=== PATIENT | male | born 1995 | race Caucasian/White ===

== ENCOUNTER 2023-12-19 14:34 | Emergency (ER) | payer OTHER ==
[2023-12-19 15:21] LABS: BILIRUBIN,URINE SMALL (NEGATIVE); GLUCOSE, URINE (UA) NEGATIVE (NEGATIVE); KETONES,URINE (UA) NEGATIVE (NEGATIVE); LEUKOCYTE ESTERASE, URINE NEGATIVE (NEGATIVE); NITRITE,URINE NEGATIVE (NEGATIVE); OCCULT BLOOD,URINE NEGATIVE (NEGATIVE); PROTEIN,URINE TRACE mg/dL (NEGATIVE); UROBILINOGEN,URINE 0.2 (NORMAL) E.U./dL (NORMAL)
[2023-12-19 15:22] LABS: CLARITY,URINE CLEAR (CLEAR)
[2023-12-19 15:42] LABS: BASOPHILS # (AUTO) 0.1 10^3/uL (0.0-0.1); BASOPHILS % (AUTO) 0.7 %; EOSINOPHILS # (AUTO) 0.2 10^3/uL (0.0-0.7); EOSINOPHILS % (AUTO) 1.9 %; HCT - HEMATOCRIT 36.3 % (42.0-52.0); LYMPHOCYTES # (AUTO) 1.6 10^3/uL (1.5-3.5); LYMPHOCYTES % (AUTO) 14.4 %; MEAN CORPUSCULAR HEMOGLOBIN 17.9 pg (27.0-31.0); MEAN CORPUSCULAR HGB CONC 27.5 g/dL (32.0-36.0); MEAN CORPUSCULAR VOLUME 65.1 fL (80.0-94.0); MEAN PLATELET VOLUME 8.2 fL (7.4-11.4); MONOCYTES # (AUTO) 1.2 10^3/uL (0.0-1.0); NEUTROPHILS # (AUTO) 7.7 10^3/uL (1.5-6.6); NEUTROPHILS % (AUTO) 71.8 %; PLT - PLATELET COUNT 660 10^3/uL (130-450); RED BLOOD COUNT 5.58 10^6/uL (4.70-6.10); RED CELL DISTRIBUTION WIDTH 21.2 % (12.0-15.0); WHITE BLOOD COUNT 10.8 x10^3/uL (4.8-10.8)
[2023-12-19 15:45] LABS: SLIDE REVIEW? Indicated
[2023-12-19 15:56] LABS: ALBUMIN 3.4 g/dL (3.2-5.5); ALBUMIN/GLOBULIN RATIO 1.1 (1.0-2.2); BILIRUBIN,TOTAL 0.3 mg/dL (0.2-1.0); CALCIUM 9.1 mg/dL (8.5-10.3); CREATININE 0.9 mg/dL (0.6-1.3); TOTAL PROTEIN 6.4 g/dL (6.4-8.9)
[2023-12-19 16:10] LABS: PLATELET ESTIMATE, MANUAL INCREASED (>450,000) (NORMAL); PLATELET MORPHOLOGY NORMAL APPEARANCE (NORMAL)
[2023-12-19 16:11] LABS: WBC MORPHOLOGY (MULTIPLE) NORMAL APPEARANCE (NORMAL)
--- NOTE | 2023-12-19 17:28 | ED Physician Documentation ---
PD HPI ABD PAIN - Stated complaint Stated Complaint: STOMACH PX,GI,NAUSEA,COLLAZO - Chief complaint Chief Complaint: Abd Pain - Additional information Additional information: 28-year-old male presents emergency department for abdominal pain. Patient says that he has been having on and off bright red per rectum for the last 2 to 3 years now he said that he attributed it to heavy lifting he has never seen a provider for this. Today he started having bright javed blood per rectum he said he is also been having very inconsistent bowel movements and feels like anytime he eats he immediately has diarrhea. He has pain to his left lower quadrant he is now feeling dizziness with nausea.He is unsure if he has a history of hemorrhoids PD PAST MEDICAL HISTORY - Past Medical History Past Medical History: Yes Cardiovascular: None Respiratory: None Neuro: None Endocrine/Autoimmune: None GI: None : None HEENT: None Psych: None Musculoskeletal: None Derm: None - Past Surgical History Past Surgical History: No - Present Medications Home Medications: Ambulatory Orders Medication Instructions Recorded Confirmed Amox/Clav 875/125 [Augmentin] 1 each PO Q12H #14 tablet 12/19/23 Budesonide [Entocort EC] 9 mg PO DAILY #14 12/19/23 - Allergies Allergies/Adverse Reactions: Allergies Allergy/AdvReac Type Severity Reaction Status Date / Time No Known Drug Allergies Allergy Verified 12/19/23 15:01 - Social History Does the pt smoke?: No Smoking Status: Never smoker Does the pt drink ETOH?: Yes Does the pt have substance abuse?: No - Immunizations Immunizations are current?: Yes - POLST Patient has POLST: No PD ED PE NORMAL - Vitals Vital signs reviewed: Yes - General General: Alert and oriented X 3, No acute distress, Well developed/nourished - Cardiac Cardiac: RRR, No murmur, No gallop, Strong equal pulses - Respiratory Respiratory: No respiratory distress, Clear bilaterally - Abdomen Abdomen: Normal bowel sounds, Soft, No organomegaly, Other (Left lower quadrant tenderness) - Rectal Rectal: Other (pts at bedside, normal rectal tone, no hemrrhoids, no oozing or beeding noted) - Back Back: No CVA TTP - Derm Derm: Normal color, Warm and dry, No rash - Psych Psych: Normal mood, Normal affect Results - Vitals Vitals: Vital Signs - 24 hr 12/19/23 12/19/23 12/19/23 15:01 18:19 20:14 Temperature 37.6 C 36.8 C Heart Rate 110 H 92 89 Respiratory 18 16 18 Rate Blood Pressure 137/82 H 130/64 122/62 O2 Saturation 99 98 100 Oxygen O2 Source Room air - Labs Labs: Laboratory Tests 12/19/23 12/19/23 12/19/23 15:16 15:36 15:36 WBC 10.8 RBC 5.58 Hgb 10.0 L Hct 36.3 L MCV 65.1 L MCH 17.9 L MCHC 27.5 L RDW 21.2 H Plt Count 660 H MPV 8.2 Neut # (Auto) 7.7 H Lymph # (Auto) 1.6 [place] # (Auto) 1.2 H Eos # (Auto) 0.2 Baso # (Auto) 0.1 Absolute Nucleated RBC 0.00 Nucleated RBC % 0.0 Manual Slide Review Indicated WBC Morphology NORMAL APPEARANCE Platelet Estimate INCREASED (>450,000) Platelet Morphology NORMAL APPEARANCE RBC Morph Micro Appear 1+ POLYCHROMASIA Sodium 134 L Potassium 4.0 Chloride 101 Carbon Dioxide 29 Anion Gap 4.0 L BUN 12 Creatinine 0.9 Estimated GFR (MDRD) 101 Glucose 107 H Calcium 9.1 Total Bilirubin 0.3 AST 12 ALT 18 Alkaline Phosphatase 43 Total Protein 6.4 Albumin 3.4 Globulin 3.0 Albumin/Globulin Ratio 1.1 Lipase 15 Urine Color YELLOW Urine Clarity CLEAR Urine pH 7.0 Ur Specific [place] 1.020 Urine Protein TRACE Urine Glucose (UA) NEGATIVE Urine Ketones NEGATIVE Urine Occult Blood NEGATIVE Urine Nitrite NEGATIVE Urine Bilirubin SMALL H Urine Urobilinogen 0.2 (NORMAL) Ur Leukocyte Esterase NEGATIVE Ur Microscopic Review NOT INDICATED Urine Culture Comments NOT INDICATED PD Medical Decision Making - ED course ED course: 28-year-old male presents to the emergency department for left lower quadrant pain as well as bright red per rectum. Hemoglobin is stable at 10.0 hematocrit 36.3, MCV 65.1, MCH 17.9, platelet count elevated at 660 elevated neutrophils at 7.7 monocytes elevated at 1.2. Sodium is 134, glucose 107 there is small amount of bilirubin in his urine but aside from that his urinalysis is unremarkable. Rectal exam was complete by myself there is no internal or external hemorrhoids no bleeding noted normal sphincter tone. CT abdomen pelvis was complete without contrast results are still pending he also received 1 L of IV fluids. Report was given to Dr. Rossi who will further manage the patient's care and will give report to the patient once CT results have been complete. Departure - Departure Disposition: 01 Home, Self Care Clinical Impression: Colitis, Hematochezia Condition: Good Instructions: ED Colitis Ulcerative Prescriptions: Amox/Clav 875/125 [Augmentin] 1 each PO Q12H #14 tablet Budesonide [Entocort EC] 9 mg PO DAILY #14 Comments: You are seen tonight for worse than you have had in the past rectal bleeding. You were noted to be mildly anemic with a hemoglobin of 10 and a hematocrit of 36. He also had a high platelet count at 660 which is usually a sign of chronic inflammation. Chemistry panel was relatively unremarkable as was your urine. CT scan showing colitis. 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 In the meantime I am starting you on an antibiotic and a steroid which should help with the symptoms. Return if worse.
[2023-12-19] MEDS ORDERED: IOVERSOL 320 100 ML VIAL IVP ONE (17:38)
[2023-12-19] MEDS: IOVERSOL 320 100 ML VIAL IVP ONE (18:55)
--- NOTE | 2023-12-19 19:55 | CT Report ---
PROCEDURE: Abdomen/Pelvis W INDICATIONS: LLQ pain CONTRAST: Optiray 320- 100ml TECHNIQUE: After the administration of intravenous contrast, a CT scan of the abdomen and pelvis was performed. Images were recorded and evaluated at appropriate window settings. Reformats: coronal and sagittal. F or radiation dose reduction, the following was used: automated exposure control, adjustment of mA and /or kV according to patient size. COMPARISON: None. FINDINGS: Image quality: Diagnostic. Lower chest: Unremarkable. Liver: No solid mass. Gallbladder and biliary tree: No radiopaque stones or wall thickening. No biliary dilation. Spleen: No splenomegaly. Pancreas: No pancreatic ductal dilation. Adrenals: No adrenal nodule. Kidneys and ureters: No hydronephrosis. No renal cystic lesion which requires follow up. No solid mas s. Stomach, bowel and peritoneum: Liquid stool contents in the rectum. There is mural enhancement most p ronounced at the rectum and sigmoid colon. Normal appendix. No small bowel obstruction. Trace free fl uid in the left pelvis. No pneumoperitoneum. Prominent perigastric vasculature. Stomach is not disten ded. Lymph nodes: No central or retroperitoneal adenopathy. Vessels: No infrarenal aortic aneurysm. PELVIS Reproductive organs: Unremarkable. Bladder: No stone. Pelvic lymph nodes: No pelvic adenopathy by size criteria. Bones: No aggressive osseous abnormality. Other: No significant ventral or inguinal hernia. IMPRESSION: 1. Minimal enhancement most pronounced at the rectum and sigmoid colon. Liquid stool contents. Trace free fluid in the pelvis. These findings suggest a distal colitis/proctitis. 2. No small bowel obstruction. Normal appendix. Reviewed by: Ravi Diana MD on 12/19/2023 7:54 PM [facility] Approved by: Ravi Diana MD on 12/19/2023 7:54 PM PST Station ID: [id number]
[2023-12-19] MEDS: SODIUM CHLORIDE 0.9% 1,000 ML IV ONE (19:57)
--- NOTE | 2023-12-19 20:04 | ED Physician Documentation ---
ED Addendum - Addendum Addendum: 12/19/23 20:05 Signout from nurse practitioner at approximately 730 shift change. Briefly per her history, subacute to chronic GI bleeding worse today with bright red blood per rectum. Noted to be a modestly anemic with hemoglobin of 10 and elevated platelet count consistent with chronic inflammatory process. Chemistries and urine unremarkable. CT showing colitis. Discussed with him it is probably something like ulcerative colitis and will need follow-up colonoscopy and he understands. Will start budesonide and Augmentin in the interim. Discharged home Condition: Stable Diagnosis: 1. Lower GI bleed 2. Colitis Prescriptions: Augmentin 875/125 1 p.o. twice daily #14 Budesonide 9 mg p.o. daily #14
[2023-12-19 20:16] VITALS: BP 122/62; O2SAT 100
[2023-12-19] MEDS: AMOX/CLAV 875 MG/125 MG TABLET PO STA (20:28)
[2023-12-19] MEDS: BUDESONIDE 3 MG CAPSULE PO STA (20:54)
== END 2023-12-19 20:30 | disposition home or self-care (01) ==
LOC: ED 14:34
DX: K92.1 Melena (principal); K52.9 Noninfective gastroenteritis and colitis, unspecified; D64.9 Anemia, unspecified
CPT/HCPCS: 36415; 74177; 80053; 81003; 83690; 85025; 99283; 99284; A9270; Q9967; 81001; 87086

== ENCOUNTER 2023-12-20 15:15 | Emergency (ER) | payer OTHER ==
[2023-12-20 15:53] LABS: BASOPHILS % (AUTO) 1.2 %; EOSINOPHILS % (AUTO) 2.8 %; HCT - HEMATOCRIT 33.8 % (42.0-52.0); HGB - HEMOGLOBIN 9.5 g/dL (14.0-18.0); LYMPHOCYTES % (AUTO) 15.3 %; MEAN CORPUSCULAR HEMOGLOBIN 18.1 pg (27.0-31.0); MEAN CORPUSCULAR HGB CONC 28.1 g/dL (32.0-36.0); MEAN CORPUSCULAR VOLUME 64.4 fL (80.0-94.0); MEAN PLATELET VOLUME 8.6 fL (7.4-11.4); MONOCYTES % (AUTO) 17.4 %; NEUTROPHILS % (AUTO) 63.1 %; PLT - PLATELET COUNT 554 10^3/uL (130-450); RED BLOOD COUNT 5.25 10^6/uL (4.70-6.10); RED CELL DISTRIBUTION WIDTH 21.1 % (12.0-15.0); WHITE BLOOD COUNT 8.9 x10^3/uL (4.8-10.8)
[2023-12-20 15:54] LABS: ABNORMAL LYMPHS % (MANUAL) 0 %
[2023-12-20 16:04] LABS: ALBUMIN 3.2 g/dL (3.2-5.5); ALBUMIN/GLOBULIN RATIO 1.1 (1.0-2.2); BILIRUBIN,TOTAL 0.3 mg/dL (0.2-1.0); CALCIUM 8.5 mg/dL (8.5-10.3); CREATININE 0.8 mg/dL (0.6-1.3); POTASSIUM 3.7 mmol/L (3.5-4.5); TOTAL PROTEIN 6.1 g/dL (6.4-8.9)
[2023-12-20] MEDS: ONDANSETRON 4 MG/2 ML VIAL IVP STA (16:28)
[2023-12-20] MEDS: HYDROmorphone 1 MG/ML CARPUJECT IVP STA (16:31)
[2023-12-20] MEDS: DEXAMETHASONE 10 MG/ML VIAL IVP STA (16:34)
[2023-12-20 16:38] LABS: BAND NEUTROPHILS % (MANUAL) 15 %; BASOPHILS # (MANUAL) 0.2 10^3/uL (0-0.1); BASOPHILS % (MANUAL) 2 %; EOSINOPHILS # (MANUAL) 0.5 10^3/uL (0-0.7); LYMPHOCYTES % (MANUAL) 23 %; MONOCYTES # (MANUAL) 1.3 10^3/uL (0.0-1.0); NEUTROPHILS # (MANUAL) 4.8 10^3/uL (1.5-6.6)
[2023-12-20 16:42] LABS: PLATELET ESTIMATE, MANUAL INCREASED (>450,000) (NORMAL); PLATELET MORPHOLOGY NORMAL APPEARANCE (NORMAL); WBC MORPHOLOGY (MULTIPLE) 1+ SMUDGE CELLS (NORMAL)
[2023-12-20 16:43] LABS: DIFFERENTIAL COMMENT MANUAL DIFFERENTIAL
--- NOTE | 2023-12-20 17:06 | ED Physician Documentation ---
History of Present Illness - Stated complaint Stated Complaint: FEVER,HIGH BP,ABD PX - Chief complaint Chief Complaint: Abd Pain - Additonal information Additional information: Patient 28-year-old male presenting the emergency department with abdominal pain and blood per rectum. Seen here yesterday and diagnosed with colitis. Reports tried to go to his primary care doctor's office today and they "refused to see me". Returns because of persistent pain. Denies Nausea, vomiting Review of Systems Constitutional: reports: Fever Eyes: denies: Loss of vision Ears: denies: Loss of hearing Nose: denies: Rhinorrhea / runny nose Throat: denies: Dental pain / toothache Cardiac: denies: Chest pain / pressure Respiratory: denies: Dyspnea GI: reports: Abdominal Pain, Diarrhea, Bloody / black stool. denies: Nausea, Vomiting PD PAST MEDICAL HISTORY - Past Medical History Past Medical History: No Cardiovascular: None Respiratory: None Neuro: None Endocrine/Autoimmune: None GI: None : None HEENT: None Psych: None Musculoskeletal: None Derm: None - Past Surgical History Past Surgical History: No - Present Medications Home Medications: Ambulatory Orders Medication Instructions Recorded Confirmed Amox/Clav 875/125 [Augmentin] 1 each PO Q12H #14 tablet 12/19/23 12/20/23 Budesonide [Entocort EC] 9 mg PO DAILY #14 12/19/23 12/20/23 HYDROcod/ACETAM 5/325 [[place] 5/325] 1 - 2 ea PO Q6H PRN #14 tablet 12/20/23 Ondansetron Odt [Zofran] 4 mg TL Q6H PRN #10 tablet 12/20/23 - Allergies Allergies/Adverse Reactions: Allergies Allergy/AdvReac Type Severity Reaction Status Date / Time No Known Drug Allergies Allergy Verified 12/20/23 15:30 - Social History Does the pt smoke?: No Smoking Status: Never smoker Does the pt drink ETOH?: Yes Does the pt have substance abuse?: No - Immunizations Immunizations are current?: Yes - POLST Patient has POLST: No PD ED PE NORMAL - General General: Alert and oriented X 3 - HEENT HEENT: Atraumatic - Neck Neck: Supple, no meningeal sign - Cardiac Cardiac: RRR - Respiratory Respiratory: No respiratory distress - Abdomen Abdomen: Normal bowel sounds, Other (. Positive left lower quadrant tenderness) Results - Vitals Vitals: Vital Signs - 24 hr 12/20/23 12/20/23 15:18 16:13 Temperature 36.9 C Heart Rate 109 H 103 H Respiratory 17 14 Rate Blood Pressure 130/69 137/81 H O2 Saturation 100 96 Oxygen O2 Source Room air - Labs Labs: Laboratory Tests 12/20/23 12/20/23 12/20/23 15:42 15:42 15:42 WBC 8.9 RBC 5.25 Hgb 9.5 L Hct 33.8 L MCV 64.4 L MCH 18.1 L MCHC 28.1 L RDW 21.1 H Plt Count 554 H MPV 8.6 Neut # (Auto) Not Reportable Lymph # (Auto) Not Reportable [place] # (Auto) Not Reportable Eos # (Auto) Not Reportable Baso # (Auto) Not Reportable Absolute Nucleated RBC Not Reportable Total Counted 100 Band Neuts % (Manual) 15 H Abnorm Lymph % (Manual) 0 Nucleated RBC % Not Reportable Neutrophils # (Manual) 4.8 Lymphocytes # (Manual) 2.0 Monocytes # (Manual) 1.3 H Eosinophils # (Manual) 0.5 Basophils # (Manual) 0.2 H Differential Comment MANUAL DIFFERENTIAL WBC Morphology 1+ SMUDGE CELLS Platelet Estimate INCREASED (>450,000) Platelet Morphology NORMAL APPEARANCE RBC Morph Micro Appear 1+ TARGET CELLS Sodium 136 Potassium 3.7 Chloride 102 Carbon Dioxide 27 Anion Gap 7.0 BUN 9 Creatinine 0.8 Estimated GFR (MDRD) 116 Glucose 97 Lactic Acid 0.8 Calcium 8.5 Total Bilirubin 0.3 AST 9 L ALT 16 Alkaline Phosphatase 38 L Total Protein 6.1 L Albumin 3.2 Globulin 2.9 Albumin/Globulin Ratio 1.1 Lipase 13 PD Medical Decision Making - ED course Complexity details: reviewed old records, reviewed results, re-evaluated patient, d/w patient ED course: Patient 28-year-old male returning to the emergency department approximately 24 hours after diagnosis colitis with strong suspicion for an inflammatory bowel disease. Afebrile, hematin stable on arrival to the emergency department. Patient did have a very low level tachycardia with pulse 108 on arrival however this resolved while at rest. Labs obtained were all generally reassuring. No SIRS criteria and noted in patient's hemoglobin while slightly lower than yesterday i s not dramatically or significantly so. He was given dose hydromorphone, IV Decadron, Zofran with significant improvement in his symptoms. He was previously prescribed Augmentin and course steroid to take at home. Will provide medication for pain, nausea and continue to encourage follow-up with primary care for likely referral to gastroenterology. Clear return precautions given prior to discharge. Departure - Departure Disposition: Home, Self Care Clinical Impression: Colitis Prescriptions: HYDROcod/ACETAM 5/325 [[place] 5/325] 1 - 2 ea PO Q6H PRN #14 tablet PRN Reason: Pain Ondansetron Odt [Zofran] 4 mg TL Q6H PRN #10 tablet PRN Reason: Nausea / Vomiting Comments: Thank you for allowing us to care for you today [facility]. I written prescriptions for medication for pain and nausea. Please take these in conjunction with the medications you are prescribed yesterday. Please continue to work towards follow-up with your primary care doctor as you will likely need referral to a authorization rep. If it anytime you have new or worsening symptoms please not hesitate to return.
[2023-12-20 17:28] VITALS: BP 127/81; O2SAT 100
== END 2023-12-20 17:20 | disposition home or self-care (01) ==
LOC: ED 15:15
DX: K52.9 Noninfective gastroenteritis and colitis, unspecified (principal)
CPT/HCPCS: 36415; 80053; 83605; 83690; 85025; 96374; 96375; 99283; 99284; J1170

== ENCOUNTER 2024-02-05 08:00 | Outpatient (CLI) | payer OTHER | END 2024-02-05 23:59 | disposition home or self-care (01) | LOC: PC 08:00 | PROVIDERS: ATTEND Nurse Practitioner Adult Health | DX: Z51.5 Encounter for palliative care (principal); K51.90 Ulcerative colitis, unspecified, without complications; F41.9 Anxiety disorder, unspecified; R63.4 Abnormal weight loss; G47.00 Insomnia, unspecified; Z71.89 Other specified counseling | CPT/HCPCS: 99205 ==

== ENCOUNTER 2024-02-16 14:00 | Outpatient (CLI) | payer OTHER ==
--- NOTE | 2024-02-16 16:15 | XRAY Report ---
PROCEDURE: Chest 2V INDICATIONS: ACUTE COUGH TECHNIQUE: 2 views of the chest were acquired. COMPARISON: None. FINDINGS: Surgical changes and devices: None. Lungs and pleura: No pleural effusions or pneumothorax. Lungs are clear. Mediastinum: Mediastinal contours appear normal. Heart size is normal. Bones and chest wall: No suspicious bony lesions. Overlying soft tissues appear unremarkable. IMPRESSION: No acute cardiopulmonary process. Reviewed by: Socrates Ramirez MD on 02/16/2024 4:14 PM PDT Approved by: Socrates Ramirez MD on 02/16/2024 4:14 PM PDT Station ID: [id number]
== END 2024-02-16 14:15 | disposition home or self-care (01) ==
LOC: DI.N 14:00
PROVIDERS: ATTEND Physician Assistant Medical
DX: R05.1 Acute cough (principal)

== ENCOUNTER 2024-02-23 13:00 | Outpatient (CLI) | payer OTHER | END 2024-02-23 23:59 | disposition home or self-care (01) | LOC: PC 13:00 | PROVIDERS: ATTEND Nurse Practitioner Adult Health | DX: Z51.5 Encounter for palliative care (principal); K51.90 Ulcerative colitis, unspecified, without complications; R05.1 Acute cough; F06.4 Anxiety disorder due to known physiological condition | CPT/HCPCS: 99215 ==

== ENCOUNTER 2024-03-07 10:00 | Outpatient (CLI) | payer OTHER | END 2024-03-07 23:59 | disposition home or self-care (01) | LOC: PC 10:00 | PROVIDERS: ATTEND Nurse Practitioner Adult Health | DX: Z51.5 Encounter for palliative care (principal); R63.4 Abnormal weight loss; R10.9 Unspecified abdominal pain; K51.90 Ulcerative colitis, unspecified, without complications; F06.4 Anxiety disorder due to known physiological condition | CPT/HCPCS: 99215 ==

== ENCOUNTER 2024-06-13 08:00 | Outpatient (CLI) | payer OTHER | END 2024-06-13 23:59 | disposition home or self-care (01) | LOC: PC 08:00 | PROVIDERS: ATTEND Nurse Practitioner Adult Health | DX: Z51.5 Encounter for palliative care (principal); K51.90 Ulcerative colitis, unspecified, without complications; F06.4 Anxiety disorder due to known physiological condition; R53.83 Other fatigue | CPT/HCPCS: 99215 ==

== ENCOUNTER 2024-07-05 08:45 | Outpatient (CLI) | payer OTHER | END 2024-07-05 08:46 | disposition home or self-care (01) | LOC: LAB 08:45 | PROVIDERS: ATTEND Internal Medicine | DX: D50.0 Iron deficiency anemia secondary to blood loss (chronic) (principal) | CPT/HCPCS: 36415; 82728; 83540; 84466 ==